=== PATIENT | female | born 1940 | race Caucasian/White ===

== ENCOUNTER → 2018-09-24 | Outpatient (CLI) | payer MEDICARE, OTHER ==
[~2018-09-24] MED LIST: AMARYL2 MG PO; AMLODIPINE BESY10 MG PO; ASPIR 8181 M1 PO; ATORVASTATIN CA40 MG PO; BENTYL 10 MG CA10 MG PO; CARAFATE 1 GM TA1 G1 PO; COLACE1 EAC1 RC; COZAAR 50 MG TA50 M2 PO; DULCOLAX5 MG PO; FISH OIL 1,001000 M2 PO; HUMALOG100 UNIT/1 SUBQ; LEVEMIR SUBQ; LINZESS290 MCG PO; MAXZIDE-25 MG1 EACH PO; MELATONIN3 MG PO; METFORMIN HCL500 MG PO; POTASSIUM20 PO; PROTONIX40 M1 PO; SIMVASTATIN40 MG PO; TUMS PO; VITAMIN D2000 UNIT PO
== END ==
LOC: M.ULTRA 13:05
DX: R60.0 Localized edema (principal); Z88.1 Allergy status to other antibiotic agents; Z88.2 Allergy status to sulfonamides